=== PATIENT | female | born 1985 ===

== ENCOUNTER 2020-10-14 10:14 | Emergency (ER) | payer OTHER ==
[~2020-10-14] VITALS: Ht 172.7 cm; Wt 97.5 kg
[2020-10-14] MEDS ORDERED: LABETALOL HCL100 MG (10:24)
== END 2020-10-14 16:18 | disposition home or self-care (01) ==
LOC: ER 10:14
DX: S82.831A Other fracture of upper and lower end of right fibula, initial encounter for closed fracture (principal); W18.39XA Other fall on same level, initial encounter; Y93.89 Activity, other specified; Y92.59 Other trade areas as the place of occurrence of the external cause; Y99.8 Other external cause status; Z11.52 Encounter for screening for COVID-19